=== PATIENT | male | born 1955 | race Caucasian/White ===

== ENCOUNTER 2022-07-02 11:18 | Emergency (ER) | payer BC ==
[~2022-07-02] VITALS: Ht 175.3 cm; Wt 113.6 kg
[2022-07-02 11:28] VITALS: BP 140/84
[2022-07-02] MEDS ORDERED: ketorolac trometh inj. 60 MG/2 ML VIAL IM ONE (12:25)
[2022-07-02] MEDS ORDERED: LIDOcaine 5% patch TP ONE (12:30)
[2022-07-02] MEDS ORDERED: CYCL-1 PO (12:53)
[2022-07-02] MEDS ORDERED: LIDO700A32 TOP (12:53)
[2022-07-02] MEDS ORDERED: IBUP-1986 PO (12:53)
== END 2022-07-02 13:06 | disposition home or self-care (01) ==
LOC: ER 11:19
DX: M54.41 Lumbago with sciatica, right side (principal); G89.29 Other chronic pain; M54.9 Dorsalgia, unspecified
CPT/HCPCS: 96372; 99283; J1885

== ENCOUNTER 2025-01-26 13:36 | Emergency (ER) | payer BC ==
[~2025-01-26] VITALS: Ht 177.8 cm; Wt 119.9 kg
[~2025-01-26 13:36] MED LIST: CYCL-1 PO; IBUP-1986 PO; LIDO-52 TOP
--- NOTE | 2025-01-26 13:43 | ELECTROCARDIOGRAPH REPORT ---
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
[2025-01-26 14:08] LABS: MEAN PLATELET VOLUME 8.2 FL (7.4-10.4); RED CELL DISTRIBUTION WIDTH 13.9 % (11.5-14.5)
[2025-01-26 14:30] LABS: CREATININE 1.28 MG/DL (0.60-1.10); PRO BRAIN NATRIURETIC PEPTIDE 44 PG/ML (0-125); TOTAL CARBON DIOXIDE 25.6 MMOL/L (24-32); eCRCL 56 ML/MIN; eGFR 56 ML/MIN
--- NOTE | 2025-01-26 14:33 | RADIOLOGY REPORT ---
EXAM: DI CHEST,SINGLE VIEW Indication: CP Technique: Single frontal view of the chest was obtained Comparison: None FINDINGS: Lines and Tubes: None Lungs: No focal consolidation. Pleura: No effusion. No pneumothorax. Cardiomediastinal contours: Unremarkable. Atherosclerotic vascular calcifications of the thoracic aorta are noted. Bones: No acute osseous abnormality. IMPRESSION: No acute cardiopulmonary disease.
--- NOTE | 2025-01-26 15:01 | Physician Documentation ---
History of Present Illness ~ Chief Complaint: Bradycardia Stated Complaint: ABNORMAL EKG Time Seen by MD: 16:43 Primary Medical Doctor: SUNIL HAMMOND Chief Complaint: Caveat: Independent Historians: History of Present Illness: Patient is a 69-year-old man with no complaints. Patient is seen today [facility] and was referred here for bradycardia seen on EKG at his doctor's office today. However I do not have a copy of that EKG. Patient denies any current chest pain or shortness of breath or abdominal pain or exercise intolerance or nausea, vomiting, diarrhea. Patient has no other concern or complaint at this time. Patient denies any previous heart attack or cardiac history. Review of systems: All systems were reviewed and are negative except for what is indicated in the history of present illness. Past Medical History: Luzma's thyroiditis/hypothyroidism, GERD Past Surgical History: Noncontributory Social History: No tobacco use, no alcohol use, no drug use Medications: Reviewed as documented Nursing Notes Allergies: Reviewed as documented in Nursing Notes Medication Reconciliation Allergies: Coded Allergies: No Known Allergies (Unverified , 01/26/25) Scheduled Cyclobenzaprine* (Cyclobenzaprine*), 1 TAB PO Q8H Ibuprofen (Ibuprofen), 1 TAB PO Q8H Lidocaine (Lidoderm), 1 PATCH TOP DAILY Past Medical History Past Medical History: Chronic Pain, Chronic Back Pain Past Surgical History: noncontributory Alcohol Use: None Drug Use: none Lives with: Family Lives In: Home Occupation: retired Review of Systems All Other Systems at this time: Reviewed and Negative ROS Patient denies any other acute symptoms other than above. All other systems are negative Physical Exam Vital Signs: Temperature: 97.5, Source: Temporal, Heart Rate: 46, Respiratory Rate: 18, BP: 147/76, Pulse Oximetry: 94, Weight: 119.900 Physical Exam General Appearance: No distress HEENT: Normal OP, moist oral mucosa, PERRL, EOMI Neck: supple, normal ROM, trachea midline Pulmonary: No respiratory distress, CTA, BS equal Cardiac: RRR, no murmur, rub or gallop, GI: nondistended, soft, nontender, normal bowel sounds, no guarding, no rebound Extremities: normal ROM, no swelling, non-tender Skin: intact, dry, warm, no rashes Neuro: AAOx3, speech is clear, no focal motor weakness Psych: normal affect, good eye contact, no apparent hallucination, normal speech Progress Results/Orders Results/Orders Orders - FADI CHURCH MD Chest,Single View (01/26/25 14:23) Monitor (01/26/25 13:42) Saline Lock (01/26/25 13:42) Oxygen (01/26/25 13:42) Hs Troponin I W Calculations (01/26/25 16:42) Ringers Solution, Lacted (Lactated Ringe (01/26/25 17:20) Completed Orders - FADI CHURCH MD Electrocardiogram (01/26/25 ) Chest,Single View (01/26/25 14:23) Cbc/Diff (01/26/25 13:42) BMP (01/26/25 13:42) PBNP (01/26/25 13:42) Hs Troponin I W Calculations (01/26/25 13:42) Hs Troponin I W Calculations (01/26/25 15:42) MG (01/26/25 13:45) Medications Received in ER Medications (Trade) Dose Ordered Sig/[place] Route PRN Reason Start Time Stop Time Status Last Admin Dose Admin Lactated Ringer's 1,000 ml @ 1,000 mls/hr ONCE ONCE IV 01/26/25 17:20 01/26/25 18:19 01/26/25 17:20 1,000 MLS/HR Vital Signs 01/26/25 01/26/25 01/26/25 13:45 16:34 17:02 Temp 97.5 97.5 Pulse 46 79 Resp 18 16 B/P (MAP) 147/76 164/90 (114) Pulse Ox 94 97 O2 Flow Rate 0 Laboratory Tests Test 01/26/25 13:45 01/26/25 16:02 01/26/25 17:12 White Blood Count 5.7 Red Blood Count 4.94 Hemoglobin 15.3 Hematocrit 45.6 Mean Corpuscular Volume 92.3 Mean Corpuscular Hemoglobin 31.0 Mean Corpuscular Hemoglobin Concent 33.6 Red Cell Distribution Width 13.9 Platelet Count 236 Mean Platelet Volume 8.2 Neutrophils (%) (Auto) 57.0 Lymphocytes (%) (Auto) 32.5 Monocytes (%) (Auto) 6.7 Eosinophils (%) (Auto) 2.8 Basophils (%) (Auto) 1.0 Neutrophils # (Auto) 3.2 Lymphocytes # (Auto) 1.8 Monocytes # (Auto) 0.4 Eosinophils # (Auto) 0.2 Basophils # (Auto) 0.1 CBC Comment Sodium Level 143 Potassium Level 3.8 Chloride Level 108 H Carbon Dioxide Level 25.6 Anion Gap 9 Blood Urea Nitrogen 22 H Creatinine 1.28 H Estimated GFR/1.73 m2 56 BUN/Creatinine Ratio 17.2 Glucose Level 147 H Calcium Level 9.0 Magnesium Level 1.9 Troponin I High Sensitivity 5 5 Pro-B-Type Natriuretic Peptide 44 Albumin 4.1 Chemistry Comments Troponin I High Sens Percent Delta 0 Troponin I Hi Sens Absolute Change 0 Medical Decision Making Additional information obtaine: old records Findings Differential diagnosis includes but is not limited to: Cardiac dysrhythmia, bradycardia, tachycardia, ventricular bigeminy, PVCs, PACs, atrial flutter, atrial fibrillation, sick sinus syndrome EKG independent interpretation: Sinus tachycardia, ventricular bigeminy, heart rate 100, normal axis, normal ST segments Chest x-ray, single view, indication: Palpitations, PVCs Independent interpretation: Lungs are clear, normal mediastinum, normal cardiac silhouette. No acute cardiopulmonary process Laboratory data independent interpretation: CBC: Normal CMP: BUN and creatinine are mildly elevated at 22 and 1.28 First troponin: 5 2nd troponin: 5 3rd troponin: 6 Emergency department course/medical decision-making: Patient was referred from [facility] for bradycardia. However the patient isn't bradycardic here. Patient has a heart rate of 100 in his found to be in ventricular bigeminy. Patient is and has been asymptomatic. There was no evidence of acute coronary syndrome. Patient is stable for discharge. Test r esults and treatment plan and need for follow up with the feeder catcher tobacco as all discussed and reviewed with the patient. Patient's questions answered. Differential Dx:Considerations: Include: other (SEE ABOVE) Differential Dx:Considerations: Include other (SEE ABOVE) Departure Time of Disposition: 17:42 Disposition: 01 HOME / SELF CARE / HOMELESS Impression: Primary Impression: Ventricular bigeminy Condition: Stable Discharge Instructions: Premature Ventricular Contraction Additional Instructions: FOLLOW UP WITH YOUR PRIMARY CARE DOCTOR FOR REFERRAL TO CARDIOLOGY. RETURN TO THE ER IF YOU DEVELOP ANY SYMPTOMS SUCH DIFFICULTY BREATHING CHEST PAIN OR RAPID HEART RATE Referrals: NO PRIMARY CARE PROVIDER (PCP) Education Educated: Patient Educated regarding: diagnosis, treatment, need for follow up Signature Scribe Signature: No scribe Attestation: No scribe MAT RODRÍGUEZ Jan 26, 2025 15:01 FADI CHURCH MD Jan 26, 2025 17:36
[2025-01-26] MEDS: ringers solution, lacted 1,000 ML IV ONE (17:20)
[2025-01-26 19:04] VITALS: BP 141/86; PULSE 68; RESP 16; TEMP 97.5; O2SAT 95
== END 2025-01-26 18:40 | disposition home or self-care (01) ==
LOC: ER 13:37
DX: R00.8 Other abnormalities of heart beat (principal); R06.02 Shortness of breath; Z79.899 Other long term (current) drug therapy
CPT/HCPCS: 36415; 71045; 80048; 83735; 83880; 84484; 85025; 93005; 99285; J7120